=== PATIENT | female | born 1995 | race Caucasian/White ===

== ENCOUNTER 2017-06-11 11:29 | Emergency (ER) | payer OTHER ==
[2017-06-11 11:53] VITALS: BP 107/64
--- NOTE | 2017-06-11 13:19 | UC ---
Throat Pain/Nasal Rahat HPI - HPI Summary HPI Summary: sore throat x 1 day fever, chills no cough , no nasal congestion - History of Current Complaint Chief Complaint: UCRespiratory Stated Complaint: SORE THROAT Time Seen by Provider: 06/11/17 12:33 Hx Obtained From: Patient Hx Last Menstrual Period: 06/09/17 Onset/Duration: Gradual Onset, Lasting Days - 1 Severity: Severe Pain Intensity: 7 Pain Scale Used: 0-10 Numeric Cough: None Associated Signs & Symptoms: Positive: Fever. Negative: FB Sensation, Drooling , Sinus Discomfort, Rash - Allergies/Home Medications Allergies/Adverse Reactions: Allergies Allergy/AdvReac Type Severity Reaction Status Date / Time cold temperatures Allergy Hives Uncoded 06/11/17 11:53 Home Medications: Home Medications Etonogestrel [Nexplanon] 68 mg IMPLANT ONCE 06/11/17 [History Confirmed 06/11/17 ] PMH/Surg Hx/FS Hx/Imm Hx Previously Healthy: Yes - Surgical History Surgical History: Yes Surgery Procedure, Year, and Place: tubes in ears - Family History Known Family History: Negative: Diabetes - Social History Alcohol Use: Rare Substance Use Type: None Smoking Status (MU): Heavy Every Day Tobacco Smoker Type: Cigarettes Amount Used/How Often: 1 ppd Length of Time of Smoking/Using Tobacco: 8 yrs Have You Smoked in the Last Year: Yes - Immunization History Most Recent Influenza Vaccination: no 2016 Vaccination Up to Date: Yes Review of Systems Constitutional: Fever, Chills, Fatigue Skin: Negative Eyes: Negative ENT: Sore Throat Respiratory: Negative Cardiovascular: Negative Is Patient Immunocompromised?: No All Other Systems Reviewed And Are Negative: Yes Physical Exam Triage Information Reviewed: Yes Appearance: Well-Appearing, No Pain Distress, Well-Nourished Vital Signs: Initial Vital Signs Temp 97.8 F 06/11/17 11:48 Pulse 100 06/11/17 11:48 Resp 16 06/11/17 11:48 BP 107/64 06/11/17 11:48 Pulse Ox 100 06/11/17 11:48 Vital Signs Reviewed: Yes Eyes: Positive: Conjunctiva Clear ENT: Positive: Normal ENT inspection, Hearing grossly normal, Pharyngeal erythema, TMs normal. Negative: Nasal congestion, Nasal drainage Neck: Positive: Supple, Nontender, No Lymphadenopathy Respiratory: Positive: Chest non-tender, Lungs clear, Normal breath sounds Cardiovascular: Positive: RRR, No Murmur, Pulses Normal Skin Exam: Normal Throat Pain/Nasal Course/Dx - Differential Dx/Diagnosis Provider Diagnoses: strep pharyngitis Discharge - Discharge Plan Condition: Stable Disposition: HOME Prescriptions: Amoxicillin PO (*) [Amoxicillin 875 MG (*)] 875 mg PO BID #20 tab Ibuprofen TAB* [Motrin TAB* 600 MG] 600 mg PO Q8H PRN #20 tab PRN Reason: Pain Patient Education Materials: Strep Throat (ED) Referrals: Nayla Moser [Primary Care Provider] - If Needed
== END 2017-06-11 12:42 | disposition home or self-care (01) ==
LOC: UCCORT 11:29
DX: J02.0 Streptococcal pharyngitis (principal); F17.210 Nicotine dependence, cigarettes, uncomplicated
CPT/HCPCS: 87651; 99212; G0463

== ENCOUNTER 2018-03-30 15:34 | Emergency (ER) | payer OTHER ==
[2018-03-30 15:46] VITALS: BP 101/55
--- NOTE | 2018-03-30 16:05 | ED ---
Throat Pain/Nasal Congestion - HPI Summary HPI Summary: 22 yr old female with the complaint of left upper eyelid swelling. Onset three days ago with irritation in the lateral upper left eyelid. Now she has had progressive swelling and irritation to the left upper eyelids. Scant crusty drainage in the morning. No change in vision. No fever, chills. No other complaints. - History of Current Complaint Chief Complaint: UCEye Time Seen by Provider: 03/30/18 15:52 - Allergies/Home Medications Allergies/Adverse Reactions: Allergies Allergy/AdvReac Type Severity Reaction Status Date / Time cold temperatures Allergy Hives Uncoded 03/30/18 15:47 Home Medications: Home Medications Sertraline* [Zoloft*] 100 mg PO DAILY 03/30/18 [History Confirmed 03/30/18] PMH/Surg Hx/FS Hx/Imm Hx - Surgical History Surgery Procedure, Year, and Place: tubes in ears Infectious Disease History: No Infectious Disease History: Denies: Traveled Outside the [place] in Last 30 Days - Family History Known Family History: Positive: None Negative: Diabetes - Social History Occupation: Employed Full-time Alcohol Use: Rare Substance Use Type: Reports: None Smoking Status (MU): Heavy Every Day Tobacco Smoker Type: Cigarettes Amount Used/How Often: 1 ppd Length of Time of Smoking/Using Tobacco: 8 yrs Have You Smoked in the Last Year: Yes Review of Systems Constitutional: Negative Positive: Drainage, Other - upper eyelid swelling left eye. All Other Systems Reviewed And Are Negative: Yes Physical Exam Triage Information Reviewed: Yes Vital Signs On Initial Exam: Initial Vitals Temp Pulse Resp BP Pulse Ox 98.9 F 85 16 101/55 99 03/30/18 15:42 03/30/18 15:42 03/30/18 15:42 03/30/18 15:42 03/30/18 15:42 Vital Signs Reviewed: Yes Appearance: Positive: Well-Appearing, No Pain Distress Skin: Positive: Warm, Skin Color Reflects Adequate Perfusion Head/Face: Positive: Normal Head/Face Inspection Eyes: Positive: EOMI, ELPIDIO, Conjunctiva Inflammed - left eyelids, with left upper eyelids with hordeolum internum. ENT: Positive: Normal ENT inspection Neck: Positive: Nontender Respiratory/Lung Sounds: Positive: Clear to Auscultation, Breath Sounds Present Cardiovascular: Positive: RRR. Negative: Murmur Abdomen Description: Positive: Nontender Musculoskeletal: Positive: Strength/ROM Intact Neurological: Positive: Sensory/Motor Intact, Alert, Oriented to Person Place, Time, CN Intact II-III Psychiatric: Positive: Normal - [place] Coma Scale Best Eye Response: 4 - Spontaneous Best Motor Response: 6 - Obeys Commands Best Verbal Response: 5 - Oriented Coma Scale Total: 15 Diagnostics - Vital Signs Vital Signs Temp Pulse Resp BP Pulse Ox 03/30/18 15:42 98.9 F 85 16 101/55 99 - Laboratory Lab Statement: Any lab studies that have been ordered have been reviewed, and results considered in the medical decision making process. EENT Course/Dx - Course Course Of Treatment: 22 yr old with hordeolum internum and some conjunctivitis. Rx sulfa eyedrops, and also keflex. - Diagnoses Provider Diagnoses: Hordeolum Discharge - Sign-Out/Discharge Documenting (check all that apply): Patient Departure - Discharge Plan Condition: Good Disposition: HOME Prescriptions: Cephalexin CAP* [Keflex CAP*] 500 mg PO TID #30 cap Sulfacetamide 10 % OPTH.HOMERO* [Sulamyd 10% Opth*] 1 drop BOTH EYES Q4H #1 btl Patient Education Materials: Mary (ED) Forms: *Work Release Referrals: No Primary Care Phys,NOPCP [Primary Care Provider] - Mikaela Stern MD [Medical Doctor] - 2 Days [facility] REFERRAL [Outside] - 2 Days - Billing Disposition and Condition Condition: GOOD Disposition: Home
== END 2018-03-30 16:07 | disposition home or self-care (01) ==
LOC: UCCORT 15:34
DX: H00.014 Hordeolum externum left upper eyelid (principal); F17.210 Nicotine dependence, cigarettes, uncomplicated; Z91.09 Other allergy status, other than to drugs and biological substances
CPT/HCPCS: 99212; G0463

== ENCOUNTER 2018-04-27 14:33 | Emergency (ER) | payer OTHER ==
--- OUTSIDE RECORDS SUMMARY | 2018-04-27 14:45 | XMS REPORT ---
:1995 External Reference #:[id number] Author Organization [facility] Address [address] [place] [id number] Phone [phone] Care Team Providers Name Role Phone [facility] Primary Care Physician Unavailable Payers Type Date Identification Numbers Payment Provider Subscriber Health Maintenance Effective: Policy Number: [id number] Bear ([facility]) Hayder Andrea [facility] ([facility]) 03/02/2017 PayID: [id number] [address] [address] [place] [address] Health Maintenance Expires: 09/01/2017 Policy Number: Bear Mendez [facility] ([facility]) [id number] PayID: [id number] [place] [address] Medigap Part B Policy Number: [id number] Medicaid -Claribel Mendez PayID: [id number] [address] [place] [address] Problems Description No Active Problems Family History Date Family Member(s) Problem(s) Comments General Ovarian Cancer MGM General Breast Cancer MGM General Uterine Cancer MGM Father Alive Mother Alive Mother Lung Cancer continues to smoke and use alcohol, history of COPD. Social History Type Date Description Comments Education High School Graduate Marital Status Negative For Legal Status: Never Occupation Student senior at [employer]. Work Status Unemployed Cigars Never Smoked Cigars Pipe Never Smoked A Pipe Smokeless Tobacco Never Used Smokeless Tobacco ETOH Use Denies alcohol use Smoking Still smokes Recreational Drug Use Denies Drug Use In counseling in the past at age 13 for drug and alcohol use. Never IVDV. Denies current use. 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 Patient is currently sexually active Condom Use Occasionally Contraceptive Methods Past methods include oral contraceptives Age 1st Piedra 12 Years Old STD's No STD History Allergies, Adverse Reactions, Alerts Date Description Reaction Status Severity Comments 11/10/2014 NKDA active 05/08/2017 Environmental active Medications Medication Date Status Form Strength Qnty SIG Indications Ordering Provider Eye Drops 04/10/ Active Kelsy Dye 2018 CHRISS Mancia Nexplanon 04/10/ Active Implant 68mg 1units insert as Z30.46 Kelsy Dye 2017 directed CHRISS Mancia Macrobid 12/05/ Hx Capsules 100mg 14caps one N39.0 Kelsy Dye 2017 - capsule by Blanche 04/10/ mouth WINDOW INSTALLER 2017 twice a day x 7 days Naproxen 05/08/ Hx Tablets 500mg 28tabs 500mg Z30.[address] [facility] 2016 - twice a MD Macho 12/05/ day for 2017 two weeks Plan B One-Step 12/29/ Hx Tablets 1.5mg 1tabs 1 tab by Dano 2014 - mouth as Kulkarni, 05/08/ one dose WINDOW INSTALLER 2016 as needed No Active 11/22/ Hx Filemon, Medications 2014 - ARY Lindsay 2014 Plan B 11/22/ Hx Tablets 0.75mg 1tabs 1 by mouth V25.01 Dano 2014 - as needed. Cayla 03/22/ CHRISS 2014 Ortho-Cyclen 11/22/ Hx Tablets 0.25-35mg- 84tabs 1 by mouth V25.01 Dano (28) 2014 - mcg every day Cayla 03/22/ CHRISS 2014 Metronidazole 11/22/ Hx Tablets 500mg 14tabs 1 twice a 616.10 Dano 2014 - day by Cayla 05/08/ mouth x 7 WINDOW INSTALLER 2017 days Nitrofurantoin /00/ Hx Unknown Macrocrystal 0000 - 2016 Nexplanon /00/ Hx Unknown 0000 - 2017 Medications Administered in Office Medication Date Status Form Strength Qnty SIG Indications Ordering Provider Nexplanon 03/22/ Administered Implant 68mg 1units V25.5 Dano 2014 CHRISS Kulkarni Nexplanon 1units Administered Injection Kelsy Dye Device 04/10/ Neville Mancia WINDOW INSTALLER Nexplanon 03/22/ Administered Injection Dano Device 2014 CHRISS Kulkarni Contraceptive 11/22/ Administered Injection Dano Pills 2014 CHRISS Kulkarni Control Emergency Injection Dano Contraceptive 2014 CHRISS Kulkarni Vital Signs Date Vital Result Comment 04/10/2018 BP Systolic 112 mmHg BP Diastolic 70 mmHg Height 60 inches 5'0" Weight 94.00 lb BMI (Body Mass Index) 18.4 kg/m2 12/05/2017 BP Systolic 92 mmHg BP Diastolic 60 mmHg Height 60 inches 5'0" Weight 92.00 lb BMI (Body Mass Index) 18.0 kg/m2 05/08/2017 BP Systolic 98 mmHg BP Diastolic 62 mmHg Height 60 inches 5'0" Weight 95.00 lb BMI (Body Mass Index) 18.6 kg/m2 12/20/2015 BP Systolic 90 mmHg BP Diastolic 60 mmHg Height 60 inches 5'0" Weight 93.00 lb BMI (Body Mass Index) 18.2 kg/m2 Last Menstrual Period [id number] 11/22/2014 BP Systolic 100 mmHg BP Diastolic 60 mmHg Height 60 inches 5'0" Weight 93.00 lb BMI (Body Mass Index) 18.2 kg/m2 11/22/2014 BP Systolic 98 mmHg BP Diastolic 68 mmHg Height 60 inches 5'0" Weight 95.00 lb BMI (Body Mass Index) 18.6 kg/m2 Last Menstrual Period [id number] Results Test Date Test Result H/L Range Note Culture,Urine,Voided 12/05/2017 Source URINE-URINE Final Report No Growth 1 Chlam Trach/Neisseria 12/05/2017 C.Trachomatis NOT DETECTED Not Detected 2 Gonorroeae Rna Tma Rna,Tma N.Gonorrhoeae Rna,Tma NOT DETECTED Not Detected 3 Laboratory test finding 12/05/2017 HIV Rapid... non reactive Urinalysis DIP Only.... 12/05/2017 Urine Leukocyte Esterase QN N Urine Nitrite QN N Urine Blood ++++ Urine PH 5/0 Urine Protein Random N Urine Ketone Random N Urine Glucose QN Random N Wet Prep.... 05/08/2017 WBC Smear neg Clue Cells Vag Fluid Wet Prep neg Ro Wet Prep neg Lactobacillus Wet Prep many Whiff Wet Prep neg Bacteria Wet Prep na PH Wet Prep 4.5 Misc Other Test no trich Laboratory test finding 05/08/2017 HIV Rapid... non reactive Culture,Urine,Voided 05/08/2017 Source URINE Final Report NAD 4 Urinalysis DIP Only.... 05/08/2017 Urine Leukocyte Esterase QN n Urine Nitrite QN n Urine Blood +++ hemolyzed Urine PH 5 Urine Protein Random n Urine Ketone Random n Urine Glucose QN Random n Chlam Trach/Neisseria 05/08/2017 C.Trachomatis NOT DETECTED Not Detected 5 Gonorroeae Rna Tma Rna,Tma N.Gonorrhoeae Rna,Tma NOT DETECTED Not Detected 6 Thinprep Pap Housekeeper Caregiver 05/08/2017 Results Neg. 7 W/RFX HPV HR Chlam Trach/Neisseria 12/20/2015 C.Trachomatis NOT DETECTED Not Detected 8 Gonorroeae Rna Tma Rna,Tma N.Gonorrhoeae Rna,Tma NOT DETECTED Not Detected 9 Thinprep Pap Housekeeper Caregiver W/RFX HPV Mrna E6/E7 12/20/2015 Results No EC Zone + BV 10 Wet Prep.... 12/20/2015 WBC Smear few Clue Cells Vag Fluid Wet Prep 1 Ro Wet Prep 0 Lactobacillus Wet Prep 0 Whiff Wet Prep neg Bacteria Wet Prep neg PH Wet Prep 4.5 Misc Other Test no trich Claribel Annual Lab Set 12/20/2015 HGB Blood.... 13.9 Urinalysis DIP Only.... 12/20/2015 Urine Leukocyte Esterase QN tr Urine Nitrite QN N Urine Blood N Urine PH 6.0 Urine Protein Random N Urine Ketone Random N Urine Glucose QN Random N Laboratory test finding 12/20/2015 Test Urine..... neg HIV Rapid... non-reactive Laboratory test 03/22/2015 C.Trachomatis Rna,Tma NOT DETECTED Not Detected 11 finding W/RFX N.Gonorrhoeae Rna,Tma Laboratory test 03/22/2015 Test negative finding Urine..... Laboratory test 12/06/2014 Test neg finding Urine..... Chlam 11/22/2014 C.Trachomatis Rna,Tma NOT DETECTED Not Detected 12 Trach/Neisseria Gonorroeae Rna Tma N.Gonorrhoeae Rna,Tma NOT DETECTED Not Detected 13 Wet Prep.... 11/22/2014 WBC Smear 8-10 Clue Cells Vag Fluid Wet Prep + Ro Wet Prep _ Lactobacillus Wet Prep _ Whiff Wet Prep + Bacteria Wet Prep + PH Wet Prep 5.0 Laboratory test finding 11/22/2014 HIV Rapid... non reactive Claribel Annual Lab Set 11/22/2014 HGB Blood.... 13.7 Urinalysis DIP Only.... 11/22/2014 Urine Leukocyte Esterase QN N Urine Nitrite QN N Urine Blood +1 non-hemo Urine PH 9 Urine Protein Random tr Urine Ketone Random N Urine Glucose QN Random N Laboratory test finding 11/22/2014 Test Urine..... NEG 1 NO GROWTH 2 This test was performed using the APTIMA COMBO2(R) Assay (GEN-PROBE(R). The analytical performance characteristics of this assay, when used to test SurePath(R) specimens have been determined by [facility]. 3 This test was performed using the APTIMA COMBO2(R) Assay (GEN-PROBE(R). The analytical performance characteristics of this assay, when used to test SurePath(R) specimens have been determined by [facility]. 4 MULTIPLE ORGANISMS PRESENT, EACH <10,000 CFU/ML. THESE ORGANISMS COMMONLY FOUND ON EXTERNAL AND INTERNAL GENITALIA, ARE CONSIDERED TO BE COLONIZERS. NO FURTHER TESTING PERFORMED. 5 This test was performed using the APTIMA COMBO2(R) Assay (GEN-PROBE(R). The analytical performance characteristics of this assay, when used to test SurePath(R) specimens have been determined by [facility]. 6 This test was performed using the APTIMA COMBO2(R) Assay (GEN-PROBE(R). The analytical performance characteristics of this assay, when used to test SurePath(R) specimens have been determined by [facility]. 7 GYNECOLOGICAL CYTOLOGY REPORT Thinprep TIS PAP w/rfx to HPV E6/E7 REPORT STATUS: FINAL CLINICAL INFORMATION: Information not provided SLIDES / SOURCE: 1 / Cervix, Endocervix STATEMENT OF ADEQUACY: Satisfactory for evaluation. Endocervical/transformation zone component present. INTERPRETATION/RESULT: Negative for intraepithelial lesion or malignancy. COMMENT: This Pap test has been evaluated with computer assisted technology. BIOLOGY MANAGER: GUI CARRASCO(ASCP) For informational purposes: All cytology specimens are processed at [facility]. [address] [place] [phone] 8 This test was performed using the APTIMA COMBO2(R) Assay (GEN-PROBE(R). The analytical performance characteristics of this assay, when used to test SurePath(R) specimens have been determined by [facility]. 9 This test was performed using the APTIMA COMBO2(R) Assay (GEN-PROBE(R). The analytical performance characteristics of this assay, when used to test SurePath(R) specimens have been determined by [facility]. 10 GYNECOLOGICAL CYTOLOGY REPORT Thinprep TIS PAP w/rfx to HPV E6/E7 REPORT STATUS: FINAL CLINICAL INFORMATION: Information not provided SLIDES / SOURCE: 1 / Information not provided STATEMENT OF ADEQUACY: Satisfactory for evaluation. Endocervical/transformation zone component absent. INTERPRETATION/RESULT: Negative for intraepithelial lesion or malignancy. Shift in vaginal samara suggestive of bacterial vaginosis. COMMENT: This Pap test has been evaluated with computer assisted technology. BIOLOGY MANAGER: GUI VELASCO(ASCP) For informational Purposes: All cytology specimens are processed and screened at [facility]. [address] [place] [phone] 11 This test was performed using the APTIMA COMBO2(R) Assay (GEN-PROBE(R). The analytical performance characteristics of this assay, when used to test SurePath(R) specimens have been determined by [facility]. 12 This test was performed using the APTIMA COMBO2(R) Assay (GEN-PROBE(R). The analytical performance characteristics of this assay, when used to test SurePath(R) specimens have been determined by [facility]. 13 This test was performed using the APTIMA COMBO2(R) Assay (GEN-PROBE(R). The analytical performance characteristics of this assay, when used to test SurePath(R) specimens have been determined by [facility]. Procedures Date CPT Code Description Status 04/10/2018 88676 Removal With Reinsertion Non-Biodegradable Drug Completed Delivery Implant 03/22/2015 64293 Insertion, Non-Biodegradable Drug Delivery Implant Completed Encounters Type Date Location Provider CPT E/M Dx Office Visit 12/05/2017 11:00a BRYAN Mancia, WINDOW INSTALLER [id number] N39.0 Z30.46 Z11.3 Z11.4 Z13.1 Z13.9 Office Visit 05/08/2017 11:00a BRYAN Mohan, CHRISS 00211 Z30.46 Z30.46 Z01.419 Z01.419 Z11.4 Z11.4 Z12.4 Z12.4 R82.90 R82.90 Z11.3 Z13.9 F17.200 Z13.1 N39.0 Z71.7 Plan of Care 04/10/2018 - Kelsy Mancia, NPZ30.46 Enctr srvlnc implantable subdermal contraceptiveNew Medication:Nexplanon 68 mgComments:Old Nexplanon removed. New Nexplanon placed. Patient tolerated well.Follow up:3 months for her annual exam
[2018-04-27 15:16] VITALS: BP 104/59
--- NOTE | 2018-04-27 16:04 | UC ---
UC General HPI - HPI Summary HPI Summary: 22 year old female presents with 3 day history of general malaise, fatigue, body aches, nasal congestion, clear nasal drainage, bilateral ear pain, and a productive cough for yellow sputum. Associated with subjective fever and sweats. Denies CP, SOB, wheezing, abdominal pain, N/V. She is currently on antibiotics for a UTI. Has taken OTC Dayquil and Nyquil with some relief in symptoms. + smoker 1/2-1 PPD. - History of Current Complaint Chief Complaint: UCRespiratory Stated Complaint: COUGH, HEADACHE, FEVER, ACHY Time Seen by Provider: 04/27/18 15:26 Hx Obtained From: Patient Hx Last Menstrual Period: 03/04/18 Onset/Duration: Gradual Onset, Lasting Days - 3 Onset Severity: Mild Current Severity: Mild Pain Intensity: 6 Associated Signs & Symptoms: Positive: Cough, Fever - Allergy/Home Medications Allergies/Adverse Reactions: Allergies Allergy/AdvReac Type Severity Reaction Status Date / Time cold temperatures Allergy Hives Uncoded 04/27/18 15:16 Home Medications: Home Medications Antibiotic For Uti BID 04/27/18 [History] Phenazopyridine 200 mg (NF) [Pyridium 200 MG tab *] 200 mg PO TID PRN 04/27/18 [ History Confirmed 04/27/18] PMH/Surg Hx/FS Hx/Imm Hx - Additional Past Medical History Additional PMH: noncontributory Previously Healthy: Yes - Surgical History Surgical History: Yes Surgery Procedure, Year, and Place: tubes in ears - Family History Known Family History: Positive: Other - noncontributory - Social History Occupation: Employed Full-time Lives: With Family Alcohol Use: Rare Substance Use Type: None Smoking Status (MU): Heavy Every Day Tobacco Smoker Type: Cigarettes Amount Used/How Often: 1 ppd Length of Time of Smoking/Using Tobacco: 8 yrs Have You Smoked in the Last Year: Yes - Immunization History Most Recent Influenza Vaccination: no 2017 Vaccination Up to Date: Yes Review of Systems Constitutional: Fever Skin: Negative Eyes: Negative ENT: Ear Ache, Nasal Discharge, Sinus Congestion Respiratory: Cough - productive yellow sputum Gastrointestinal: Negative Is Patient Immunocompromised?: No All Other Systems Reviewed And Are Negative: Yes Physical Exam Triage Information Reviewed: Yes Appearance: No Pain Distress, Well-Nourished Vital Signs: Initial Vital Signs Temp 98.7 F 04/27/18 15:11 Pulse 88 04/27/18 15:11 Resp 16 04/27/18 15:11 BP 104/59 04/27/18 15:11 Pulse Ox 99 04/27/18 15:11 Vital Signs Reviewed: Yes Eyes: Positive: Conjunctiva Clear ENT: Positive: Nasal congestion, Nasal drainage, TMs normal, Sinus tenderness, Uvula midline. Negative: Pharyngeal erythema, Tonsillar swelling, Tonsillar exudate Neck: Positive: Supple, Nontender, No Lymphadenopathy Respiratory: Positive: Lungs clear, Normal breath sounds, No respiratory distress Cardiovascular: Positive: RRR, No Murmur Abdomen Description: Positive: Nontender, No Organomegaly, Soft Neurological: Positive: Alert Skin Exam: Normal Course/Dx - Course Course Of Treatment: 22 year old female with 3 day history of URI symptoms and subjective fever. She is currently receiving antibiotics for UTI. She is non- toxic in appearance and exam is unremarkable except for some nasal congestion and drainage. Recommend symptomatic treatment for viral URI. - Differential Dx - Multi-Symptom Provider Diagnoses: acute upper respiratory infection Discharge - Sign-Out/Discharge Documenting (check all that apply): Patient Departure All imaging exams completed and their final reports reviewed: No Studies - Discharge Plan Condition: Stable Disposition: HOME Prescriptions: Benzonatate CAP* [Tessalon 100 MG CAP*] 100 mg PO TID PRN #30 cap PRN Reason: Cough Patient Education Materials: Upper Respiratory Infection (ED) Forms: *Work Release Referrals: No Primary Care Phys,NOPCP [Primary Care Provider] - Additional Instructions: Most upper respiratory infections are caused by a viral infection. Viruses do not respond to antibiotics therefore treatment consists of treating symptoms. A typical viral infection lasts 7-10 days. Get plenty of rest and drink lots of fluids especially if you are running any fever. Saline rinses such as the Netti Pot has been shown to be very beneficial for nasal congestion and sinus symptoms. You may also use an over the counter decongestant such as Sudafed according to directions. You have been prescribed Tessalon Perles 1 cap every 8 hours as needed for your cough. Use over the counter acetaminophen (Tylenol) or ibuprofen (Advil, Motrin) according to directions as needed for aches, pain, or fever. I would recommend stopping smoking as this can worsen your symptoms. Follow up with your primary care provider in 7 days if no improvement. Seek immediate medical attention for persistent fever despite taking acetaminophen or ibuprofen, you have difficulty breathing, or any worsening of symptoms. - Billing Disposition and Condition Condition: STABLE Disposition: Home
== END 2018-04-27 16:11 | disposition home or self-care (01) ==
LOC: UCCORT 14:33
DX: J06.9 Acute upper respiratory infection, unspecified (principal); F17.210 Nicotine dependence, cigarettes, uncomplicated
CPT/HCPCS: 99212; G0463

== ENCOUNTER 2018-05-13 14:09 | Emergency (ER) | payer OTHER ==
[2018-05-13 15:10] VITALS: BP 116/64
--- NOTE | 2018-05-13 15:38 | UC ---
Respiratory Complaint HPI - HPI Summary HPI Summary: Pt presents with c/o upper respiratory congestion, cough fever, malaise that has worsened over the last 2 weeks. - History of Current Complaint Chief Complaint: UCGeneralIllness Stated Complaint: COUGH/MIGRAINE Time Seen by Provider: 05/13/18 15:32 Hx Obtained From: Patient Hx Last Menstrual Period: has nexplanon ?: No Onset/Duration: Gradual Onset, Lasting Weeks, Still Present, Worse Since - onset Timing: Constant Severity Initially: Mild Severity Currently: Moderate Pain Intensity: 0 Character: Cough: Nonproductive Aggravating Factors: Exertion, Deep Breaths, Recumbent Position Alleviating Factors: Nothing Associated Signs And Symptoms: Positive: Fever, Chills, URI, Nasal Congestion - Risk Factors Pulmonary Embolism Risk Factors: Oral Contraceptives, Smoking Cardiac Risk Factors: Smoking Pseudomonas Risk Factors: Negative Tuberculosis Risk Factors: Smoking - Allergies/Home Medications Allergies/Adverse Reactions: Allergies Allergy/AdvReac Type Severity Reaction Status Date / Time cold temperatures Allergy Hives Uncoded 05/13/18 15:10 PMH/Surg Hx/FS Hx/Imm Hx Previously Healthy: Yes - Surgical History Surgical History: Yes Surgery Procedure, Year, and Place: tubes in ears - Family History Known Family History: Positive: None, Other - noncontributory Negative: Diabetes - Social History Occupation: Employed Full-time Lives: With Family Alcohol Use: None Substance Use Type: None Smoking Status (MU): Heavy Every Day Tobacco Smoker Type: Cigarettes Amount Used/How Often: 1 ppd Length of Time of Smoking/Using Tobacco: 8 yrs Have You Smoked in the Last Year: Yes - Immunization History Most Recent Influenza Vaccination: no 2016 Vaccination Up to Date: Yes Review of Systems Constitutional: Fever, Chills, Fatigue Skin: Negative Eyes: Negative ENT: Sinus Congestion Respiratory: Shortness Of Breath, Cough Cardiovascular: Negative Gastrointestinal: Negative Genitourinary: Negative Motor: Negative Neurovascular: Negative Musculoskeletal: Myalgia Neurological: Negative Psychological: Negative Is Patient Immunocompromised?: No All Other Systems Reviewed And Are Negative: Yes Physical Exam Triage Information Reviewed: Yes Appearance: Ill-Appearing Vital Signs: Initial Vital Signs Temp 99.1 F 05/13/18 15:05 Pulse 96 05/13/18 15:05 Resp 19 05/13/18 15:05 BP 116/64 05/13/18 15:05 Pulse Ox 98 05/13/18 15:05 Vital Signs Reviewed: Yes Eye Exam: Normal ENT: Positive: Nasal congestion Dental Exam: Normal Neck exam: Normal Respiratory: Positive: No respiratory distress, Wheezing Cardiovascular Exam: Normal Musculoskeletal Exam: Normal Neurological Exam: Normal Psychological Exam: Normal Skin Exam: Normal UC Diagnostic Evaluation - Laboratory O2 Sat by Pulse Oximetry: 98 Respiratory Course/Dx - Differential Dx/Diagnosis Differential Diagnosis/HQI/PQRI: Bronchitis, Other - uri Provider Diagnoses: Bronchitis Discharge - Sign-Out/Discharge Documenting (check all that apply): Patient Departure All imaging exams completed and their final reports reviewed: No Studies - Discharge Plan Condition: Stable Disposition: HOME Prescriptions: Albuterol HFA INHALER* [Ventolin HFA Inhaler*] 1 puff INH Q6H PRN #1 mdi PRN Reason: Wheezing Azithromycin TAB* [Zithromax TAB (Z-OBED) 250 mg #6 tabs] 2 tab PO .TODAY, THEN 1 DAILY #1 obed Benzonatate CAP* [Tessalon 100 MG CAP*] 100 mg PO Q8H PRN #21 cap PRN Reason: Cough predniSONE TAB* [Deltasone 20 MG TAB*] 20 mg PO DAILY #4 tab Patient Education Materials: Acute Bronchitis (ED) Forms: *Work Release Referrals: [facility] [Outside] - If Needed No Primary Care Phys,NOPCP [Primary Care Provider] - - Billing Disposition and Condition Condition: STABLE Disposition: Home
== END 2018-05-13 15:52 | disposition home or self-care (01) ==
LOC: UCCORT 14:09
DX: J40 Bronchitis, not specified as acute or chronic (principal); F17.210 Nicotine dependence, cigarettes, uncomplicated
CPT/HCPCS: 99212; G0463

== ENCOUNTER 2019-02-20 15:55 | Emergency (ER) | payer OTHER ==
[2019-02-20 16:12] VITALS: BP 106/70
--- NOTE | 2019-02-20 16:13 | UC ---
Skin Complaint HPI - HPI Summary HPI Summary: 23-year-old female who had a pimple on the left side of her nostril which has spread to become larger sore with crustiness. - History of Current Complaint Chief Complaint: UCSkin Time Seen by Provider: 02/20/19 16:09 Stated Complaint: SKIN CONCERN Hx Obtained From: Patient Hx Last Menstrual Period: 3 weeks ?: No Onset/Duration: Gradual Onset Skin Exposure Onset/Duration: Days Ago Timing: Constant Onset Severity: Mild Current Severity: Moderate Pain Intensity: 5 Location: Nose Character: Swelling, Pruritus, Redness, Painful Aggravating Factor(s): Touch Alleviating Factor(s): Nothing Associated Signs & Symptoms: Positive: Drainage - Patient has some yellow crusty drainage. - Allergy/Home Medications Allergies/Adverse Reactions: Allergies Allergy/AdvReac Type Severity Reaction Status Date / Time cold temperatures Allergy Hives Uncoded 02/20/19 16:04 PMH/Surg Hx/FS Hx/Imm Hx Previously Healthy: Yes - Surgical History Surgical History: Yes Surgery Procedure, Year, and Place: tubes in ears - Family History Known Family History: Positive: None, Other - noncontributory Negative: Diabetes - Social History Alcohol Use: None Substance Use Type: None Smoking Status (MU): Heavy Every Day Tobacco Smoker Type: Cigarettes Amount Used/How Often: 1 ppd Length of Time of Smoking/Using Tobacco: 8 yrs Have You Smoked in the Last Year: Yes - Immunization History Most Recent Influenza Vaccination: no 2016 Vaccination Up to Date: Yes Review of Systems All Other Systems Reviewed And Are Negative: Yes Skin: Positive: Rash - Rash to inside of nose mostly on the left nostril. Is Patient Immunocompromised?: No Physical Exam Triage Information Reviewed: Yes Appearance: Well-Appearing, No Pain Distress, Well-Nourished Vital Signs: Initial Vital Signs Temp 98.6 F 02/20/19 16:05 Pulse 96 02/20/19 16:05 Resp 16 02/20/19 16:05 BP 106/70 02/20/19 16:05 Pulse Ox 98 02/20/19 16:05 Vital Signs Reviewed: Yes Eyes: Positive: Conjunctiva Clear ENT: Positive: Hearing grossly normal, Pharynx normal, TMs normal, Uvula midline Neck: Positive: Supple, Nontender, No Lymphadenopathy Respiratory: Positive: Lungs clear, Normal breath sounds, No respiratory distress, No accessory muscle use Cardiovascular: Positive: RRR, No Murmur, Pulses Normal, Brisk Capillary Refill Musculoskeletal Exam: Normal Neurological Exam: Normal Psychological Exam: Normal Skin: Positive: Rashes - Patient has honey-colored crusting rash to the inside of her left nostril and a little bit in the inside the right nostril. Course/Dx - Course Course Of Treatment: I believe these areas are impetigo. The patient was told to do good handwashing , she is off work until Saturday, she is to apply the mupirocin to the area twice a day and start the antibiotic. She is to avoid picking the areas. She is to go to the emergency room if she has any worsening symptoms such as facial swelling, cellulitis, fever, chills or unable keep the medicine down with those worsening symptoms. - Diagnoses Provider Diagnosis: Impetigo Discharge - Sign-Out/Discharge Documenting (check all that apply): Patient Departure All imaging exams completed and their final reports reviewed: No Studies - Discharge Plan Condition: Fair Disposition: HOME Prescriptions: Cephalexin CAP* [Keflex 500 CAP*] 500 mg PO TID 10 Days #30 cap Mupirocin 2% OINT* [Bactroban 2 % Oint*] 1 applic TOPICAL BID 7 Days #1 tube Patient Education Materials: Impetigo (DC) Forms: *Work Release Referrals: [facility] [Outside] No Primary Care Phys,NOPCP [Primary Care Provider] - Additional Instructions: Good handwashing, follow-up with your primary care provider in 3 or 4 days if no improvement. Go to the emergency room if you have any worsening symptoms with fever, chills, facial swelling. - Billing Disposition and Condition Condition: FAIR Disposition: Home - Attestation Statements Provider Attestation: Per institutional requirements, I have reviewed the chart, however, I was not consulted specifically or made aware of this patient by the midlevel provider. I did not personally evaluate, interact with , or disposition this patient.
== END 2019-02-20 16:25 | disposition home or self-care (01) ==
LOC: UCCORT 15:55
DX: L01.00 Impetigo, unspecified (principal); F17.210 Nicotine dependence, cigarettes, uncomplicated
CPT/HCPCS: 99212; G0463

== ENCOUNTER 2019-03-13 18:03 | Emergency (ER) | payer OTHER ==
[2019-03-13 18:31] VITALS: BP 105/69
--- NOTE | 2019-03-13 19:04 | UC ---
UC General HPI - HPI Summary HPI Summary: Pt presents with c/o sudden onset of nausea, vomiting, malaise, ST, fever, chills, X 2 days. Pt has hx of lupus and states her immune system is compromised. - History of Current Complaint Chief Complaint: UCRespiratory Stated Complaint: VOMITING, HEADACHE, CHILLS, SORE THROAT Time Seen by Provider: 03/13/19 18:44 Hx Obtained From: Patient Hx Last Menstrual Period: 03/13/19 Onset/Duration: Sudden Onset, Lasting Days, Still Present Timing: Constant Onset Severity: Mild Current Severity: Mild Pain Intensity: 5 Associated Signs & Symptoms: Positive: Abdominal Pain, Cough, Nausea, Vomiting - Allergy/Home Medications Allergies/Adverse Reactions: Allergies Allergy/AdvReac Type Severity Reaction Status Date / Time No Known Allergies Allergy Verified 03/13/19 18:26 PMH/Surg Hx/FS Hx/Imm Hx - Additional Past Medical History Additional PMH: Lupus Previously Healthy: Yes - Surgical History Surgical History: Yes Surgery Procedure, Year, and Place: tubes in ears - Family History Known Family History: Positive: None, Other - noncontributory Negative: Diabetes - Social History Occupation: Employed Full-time Lives: With Family Alcohol Use: None Substance Use Type: None Smoking Status (MU): Heavy Every Day Tobacco Smoker Type: Cigarettes Amount Used/How Often: 1 ppd Length of Time of Smoking/Using Tobacco: 8 yrs Have You Smoked in the Last Year: Yes - Immunization History Most Recent Influenza Vaccination: no 2016 Vaccination Up to Date: Yes Review of Systems All Other Systems Reviewed And Are Negative: Yes Constitutional: Positive: Fever, Chills, Fatigue Skin: Positive: Negative Eyes: Positive: Negative ENT: Positive: Sore Throat Respiratory: Positive: Cough Cardiovascular: Positive: Negative Gastrointestinal: Positive: Abdominal Pain, Vomiting, Nausea Genitourinary: Positive: Negative Motor: Positive: Negative Neurovascular: Positive: Negative Musculoskeletal: Positive: Myalgia Neurological: Positive: Headache Psychological: Positive: Negative Is Patient Immunocompromised?: No Physical Exam Triage Information Reviewed: Yes Appearance: Well-Appearing Vital Signs: Initial Vital Signs Temp 97.5 F 03/13/19 18:26 Pulse 89 03/13/19 18:26 Resp 17 03/13/19 18:26 BP 105/69 03/13/19 18:26 Pulse Ox 100 03/13/19 18:26 Vital Signs Reviewed: Yes Eye Exam: Normal ENT: Positive: Nasal congestion Dental Exam: Normal Neck exam: Normal Respiratory Exam: Normal Cardiovascular Exam: Normal Abdomen Description: Positive: Other: - generalized discomfort Musculoskeletal Exam: Normal Neurological Exam: Normal Psychological Exam: Normal Skin Exam: Normal Course/Dx - Differential Dx - Multi-Symptom Differential Diagnoses: Urinary Tract Infection - Diagnoses Provider Diagnosis: Viral syndrome Discharge - Sign-Out/Discharge Documenting (check all that apply): Patient Departure All imaging exams completed and their final reports reviewed: No Studies - Discharge Plan Condition: Stable Disposition: HOME Prescriptions: Ondansetron TAB* [Zofran 4 MG Tab*] 4 mg PO Q8H PRN #12 tab PRN Reason: Nausea Patient Education Materials: Acute Nausea and Vomiting (ED), Viral Syndrome (ED ) Forms: *Work Release Referrals: [facility] [place] [facility] [Outside] - If Needed No Primary Care Phys,NOPCP [Primary Care Provider] - - Billing Disposition and Condition Condition: STABLE Disposition: Home
== END 2019-03-13 19:15 | disposition home or self-care (01) ==
LOC: UCCORT 18:03
DX: B34.9 Viral infection, unspecified (principal); M32.9 Systemic lupus erythematosus, unspecified; F17.210 Nicotine dependence, cigarettes, uncomplicated
CPT/HCPCS: 81003; 99212; G0463

== ENCOUNTER 2019-03-22 15:22 | Emergency (ER) | payer OTHER ==
[2019-03-22 15:40] VITALS: BP 110/67
--- NOTE | 2019-03-22 16:21 | UC ---
UC General HPI - HPI Summary HPI Summary: pt is c/o a headache, bodyaches, "hot and cold", "mucous in my face" and vomiting often. she reports having "Lupus" and is treated with Mobic. She was on Plaquenil in the past but states it didn't help. she denies worst or different headache. she has no cough, sob, abdominal pain, diarrhea, dysuria or rash. she was here on 03/13/19 for the same. she is requesting a work not for today. she has not seen her specialist for the Lupus recently because she only has to go once a year. she does not have a pcp. - History of Current Complaint Chief Complaint: UCGI Stated Complaint: VOMITING/HEADACHE/CONGESTION Time Seen by Provider: 03/22/19 15:37 Hx Obtained From: Patient Hx Last Menstrual Period: 03/11/19 Pain Intensity: 5 - Allergy/Home Medications Allergies/Adverse Reactions: Allergies Allergy/AdvReac Type Severity Reaction Status Date / Time No Known Allergies Allergy Verified 03/22/19 15:36 PMH/Surg Hx/FS Hx/Imm Hx - Additional Past Medical History Additional PMH: Lupus - Surgical History Surgical History: Yes Surgery Procedure, Year, and Place: tubes in ears - Family History Known Family History: Positive: Other - noncontributory Negative: Diabetes - Social History Occupation: Employed Full-time Alcohol Use: None Substance Use Type: None Smoking Status (MU): Heavy Every Day Tobacco Smoker Type: Cigarettes Amount Used/How Often: 1 ppd Length of Time of Smoking/Using Tobacco: 8 yrs Have You Smoked in the Last Year: Yes - Immunization History Most Recent Influenza Vaccination: no 2017 Vaccination Up to Date: Yes Review of Systems All Other Systems Reviewed And Are Negative: Yes Skin: Negative: Rash Eyes: Negative: Eye Redness ENT: Negative: Sore Throat, Ear Ache Musculoskeletal: Negative: Arthralgia, Edema - Comments Additional Review of Systems Comments: ALL OTHER SYSTEMS NEGATIVE EXCEPT FOR DESCRIBED IN THE HPI Physical Exam Triage Information Reviewed: Yes Appearance: Well-Appearing Vital Signs: Initial Vital Signs Temp 97.9 F 03/22/19 15:36 Pulse 77 03/22/19 15:36 Resp 16 03/22/19 15:36 BP 110/67 03/22/19 15:36 Pulse Ox 100 03/22/19 15:36 Vital Signs Reviewed: Yes Eyes: Positive: Conjunctiva Clear, Other: - PERRL, EOMI. ENT: Positive: Pharynx normal, TMs normal. Negative: Nasal congestion, Nasal drainage Neck: Positive: Supple, Nontender, No Lymphadenopathy Respiratory: Positive: Lungs clear, Normal breath sounds, No respiratory distress Cardiovascular: Positive: RRR, No Murmur Abdomen Description: Positive: Nontender, No Organomegaly, Soft. Negative: CVA Tenderness (R), CVA Tenderness (L) Bowel Sounds: Positive: Present Musculoskeletal: Positive: ROM Intact, No Edema Neurological: Positive: Alert Psychological: Positive: Age Appropriate Behavior Skin Exam: Normal Skin: Negative: Rashes Course/Dx - Course Course Of Treatment: Pt decline a U/A citing done on last visit and was normal. ER transfer offered because of her Lupus hx. also, I am unable to do any additional evaluation here of her ongoing symptom. pt declined the ER transfer. - Differential Dx - Multi-Symptom Differential Diagnoses: Other - pt exam is unremarkable. she declined a u/a and she declined an ER tRansfer thus I have advised she f/u with Dr Macias her advertising strategist as soon as possible for a possible Lupus flare. Pt agrees to the F/U. i aslo advise she go to the ER at any time if she changes her mind. - Diagnoses Provider Diagnosis: Malaise Discharge - Sign-Out/Discharge Documenting (check all that apply): Patient Departure All imaging exams completed and their final reports reviewed: No Studies - Discharge Plan Condition: Stable Disposition: HOME Patient Education Materials: Lupus Erythematosus (DC) Forms: *Work Release Referrals: Grace Macias MD [Medical Doctor] - As Soon As Possible - Billing Disposition and Condition Condition: STABLE Disposition: Home
== END 2019-03-22 16:26 | disposition home or self-care (01) ==
LOC: UCCORT 15:22
DX: R53.81 Other malaise (principal); M32.9 Systemic lupus erythematosus, unspecified; F17.210 Nicotine dependence, cigarettes, uncomplicated
CPT/HCPCS: 99211; G0463

== ENCOUNTER 2019-06-18 14:26 | Emergency (ER) | payer OTHER ==
[2019-06-18 15:11] VITALS: BP 94/56
--- NOTE | 2019-06-18 15:50 | ED ---
GI/ HPI - HPI Summary HPI Summary: 23 yr old female with the complaint of dysuria. Onset three days ago. She has hesitancy of urination, frequency and burning. No NV. No fever. She has mild back pain. No other complaints. - History of Current Complaint Chief Complaint: UCGU Time Seen by Provider: 06/18/19 15:34 Stated Complaint: URINARY COMPLAINT Hx Last Menstrual Period: 06/04/19 Pain Intensity: 4 - Allergy/Home Medications Allergies/Adverse Reactions: Allergies Allergy/AdvReac Type Severity Reaction Status Date / Time No Known Allergies Allergy Verified 06/18/19 15:11 Home Medications: Home Medications Sertraline HCl [Zoloft] 100 mg PO DAILY 06/18/19 [History Confirmed 06/18/19] PMH/Surg Hx/FS Hx/Imm Hx - Surgical History Surgery Procedure, Year, and Place: tubes in ears Infectious Disease History: No Infectious Disease History: Denies: Traveled Outside the [place] in Last 30 Days - Family History Known Family History: Positive: None, Other - noncontributory Negative: Diabetes - Social History Occupation: Employed Full-time Alcohol Use: None Substance Use Type: Reports: None Smoking Status (MU): Heavy Every Day Tobacco Smoker Type: Cigarettes Amount Used/How Often: 1 ppd Length of Time of Smoking/Using Tobacco: 8 yrs Have You Smoked in the Last Year: Yes Review of Systems Constitutional: Negative Positive: dysuria, frequency, urgency All Other Systems Reviewed And Are Negative: Yes Physical Exam Triage Information Reviewed: Yes Vital Signs On Initial Exam: Initial Vitals Temp Pulse Resp BP Pulse Ox 98.6 F 73 16 94/56 100 06/18/19 15:06 06/18/19 15:06 06/18/19 15:06 06/18/19 15:06 06/18/19 15:06 Vital Signs Reviewed: Yes Appearance: Positive: Well-Appearing, No Pain Distress Skin: Positive: Warm, Skin Color Reflects Adequate Perfusion Head/Face: Positive: Normal Head/Face Inspection Eyes: Positive: EOMI ENT: Positive: Normal ENT inspection Neck: Positive: Nontender Respiratory/Lung Sounds: Positive: Clear to Auscultation, Breath Sounds Present Cardiovascular: Positive: RRR. Negative: Murmur Abdomen Description: Negative: CVA Tenderness (R), CVA Tenderness (L), Distended Musculoskeletal: Positive: Strength/ROM Intact Neurological: Positive: Sensory/Motor Intact, Alert, Oriented to Person Place, Time, CN Intact II-III Psychiatric: Positive: Normal Diagnostics - Vital Signs Vital Signs Temp Pulse Resp BP Pulse Ox 06/18/19 15:06 98.6 F 73 16 94/56 100 - Laboratory Lab Results: Lab Results 06/18/19 06/18/19 Range/Units 15:17 15:25 POC Urine Color Yellow POC Urine Clarity Clear POC Urine pH 5.5 (5-9) POC Ur Specif [place] 1.020 (1.010-1.030) POC Urine Protein Trace A (Negative) POC Ur Glucose (UA) Negative (Negative) POC Urine Ketones Negative (Negative) POC Urine Blood 2+ A (Negative) POC Urine Nitrite Negative (Negative) POC Urine Bilirubin Negative (Negative) POC Urine Urobilinogen 0.2 (Negative) POC U Leukocyte Esteras 1+ A (Negative) POC Ur Test Negative (Negative) Lab Statement: Any lab studies that have been ordered have been reviewed, and results considered in the medical decision making process. GIGU Course/Dx - Course Course Of Treatment: 23 yr old with dysuria and UTI. Keflex script sent. - Diagnoses Provider Diagnoses: UTI (urinary tract infection) Discharge ED - Sign-Out/Discharge Documenting (check all that apply): Patient Departure All imaging exams completed and their final reports reviewed: No Studies - Discharge Plan Condition: Good Disposition: HOME Prescriptions: Cephalexin CAP* [Keflex CAP*] 500 mg PO TID #21 cap Patient Education Materials: Urinary Tract Infection in Women (DC) Referrals: No Primary Care Phys,NOPCP [Primary Care Provider] - [facility] [place] [facility] [Outside] - 3 Days - Billing Disposition and Condition Condition: GOOD Disposition: Home
== END 2019-06-18 15:54 | disposition home or self-care (01) ==
LOC: UCCORT 14:26
DX: N39.0 Urinary tract infection, site not specified (principal); Z32.02 Encounter for pregnancy test, result negative; F17.210 Nicotine dependence, cigarettes, uncomplicated
CPT/HCPCS: 81003; 84702; 87086; 99212; G0463

== ENCOUNTER 2019-08-28 14:33 | Emergency (ER) | payer OTHER ==
[2019-08-28 15:36] VITALS: BP 110/61
--- NOTE | 2019-08-28 15:59 | UC ---
Throat Pain/Nasal Rahat HPI - HPI Summary HPI Summary: 23-year-old woman comes in with chief complaint of sore throat. Started last night. Hurts to swallow. She also has a frontal headache. She took acetaminophen which did help with the headache. She has been having some upper respiratory tract infection symptoms or almost 4 weeks on and off. - History of Current Complaint Chief Complaint: UCRespiratory Stated Complaint: CONGESTION, [place] Time Seen by Provider: 08/28/19 15:54 Hx Last Menstrual Period: nexplanon; 08/17/19 Pain Intensity: 8 - Allergies/Home Medications Allergies/Adverse Reactions: Allergies Allergy/AdvReac Type Severity Reaction Status Date / Time No Known Allergies Allergy Verified 08/28/19 15:29 PMH/Surg Hx/FS Hx/Imm Hx Previously Healthy: Yes - Surgical History Surgical History: Yes Surgery Procedure, Year, and Place: tubes in ears - Family History Known Family History: Positive: None, Other - noncontributory Negative: Diabetes - Social History Alcohol Use: None Substance Use Type: None Smoking Status (MU): Heavy Every Day Tobacco Smoker Type: Cigarettes Amount Used/How Often: 1 ppd Length of Time of Smoking/Using Tobacco: 8 yrs Have You Smoked in the Last Year: Yes - Immunization History Most Recent Influenza Vaccination: no 2016 Vaccination Up to Date: Yes Review of Systems All Other Systems Reviewed And Are Negative: Yes Constitutional: Positive: Other - SEE HPI Skin: Positive: Negative Eyes: Positive: Negative ENT: Positive: Sore Throat, Nasal Discharge, Sinus Congestion Respiratory: Positive: Negative Cardiovascular: Positive: Negative Gastrointestinal: Positive: Negative Motor: Positive: Negative Neurovascular: Positive: Negative Musculoskeletal: Positive: Negative Neurological: Positive: Headache Psychological: Positive: Negative Is Patient Immunocompromised?: No Physical Exam Triage Information Reviewed: Yes Appearance: No Pain Distress, Well-Nourished, Ill-Appearing - MILD Vital Signs: Initial Vital Signs Temp 99.5 F 08/28/19 15:30 Pulse 124 08/28/19 15:30 Resp 16 08/28/19 15:30 BP 110/61 08/28/19 15:30 Pulse Ox 98 08/28/19 15:30 Vital Signs Reviewed: Yes Eye Exam: Normal Eyes: Positive: Conjunctiva Clear ENT: Positive: Pharyngeal erythema, Nasal congestion, Nasal drainage, TMs normal , Uvula midline. Negative: Muffled voice, Hoarse voice Neck: Positive: Supple Respiratory: Positive: Lungs clear, Normal breath sounds, No respiratory distress Cardiovascular: Positive: Tachycardia Musculoskeletal: Positive: Strength Intact, ROM Intact Neurological: Positive: Alert, Muscle Tone Normal Psychological: Positive: Age Appropriate Behavior Skin Exam: Normal Throat Pain/Nasal Course/Dx - Differential Dx/Diagnosis Provider Diagnosis: Strep pharyngitis Discharge ED - Sign-Out/Discharge Documenting (check all that apply): Patient Departure All imaging exams completed and their final reports reviewed: No Studies - Discharge Plan Condition: Stable Disposition: HOME Prescriptions: Amoxicillin PO (*) [Amoxicillin 875 MG (*)] 875 mg PO BID #20 tab Patient Education Materials: Strep Throat (ED) Forms: *Work Release Referrals: [facility] [place] [facility] [Outside] Additional Instructions: FOLLOW UP WITH YOUR DOCTOR IF NOT COMPLETELY IMPROVED. GET REEVALUATED SOONER IF NOT IMPROVING OR WORSE OR ANY QUESTIONS OR CONCERNS. - Billing Disposition and Condition Condition: STABLE Disposition: Home
== END 2019-08-28 16:06 | disposition home or self-care (01) ==
LOC: UCCORT 14:33
DX: J02.0 Streptococcal pharyngitis (principal); R09.81 Nasal congestion; R00.0 Tachycardia, unspecified; F17.210 Nicotine dependence, cigarettes, uncomplicated
CPT/HCPCS: 87651; 99212; G0463